=== PATIENT | male | born 2000 | race Caucasian/White ===

== ENCOUNTER → 2022-01-02 | Outpatient (CLI) | payer BC, OTHER, SELFPAY ==
--- NOTE | 2022-01-02 14:52 | RAD_ITS ---
INDICATION: FOREIGN BODY EXAMINATION/TECHNIQUE: X-RAY - XR Skull Complete Min 4 Views COMPARISON: None. FINDINGS: CALVARIUM: No depressed skull fracture. No destructive or sclerotic abnormality observed. SOFT TISSUES: No soft tissue swelling or gas. A radiopaque ring is visualized superimposed over the patient''s left nostril, nose ring. A linear radiopacity is visualized in the midline overlying the patient''s maxillary teeth, this could represent fixation. A 0.5 cm radiopaque density is visualized superimposed over the left lateral molar teeth, location does not align with dental filling or implant would recommend clinical correlation. SINUSES: No acute abnormality. Deviation of the nasal septum to the left is visualized. RAD/Skull min 4 Views IMPRESSION: A 0.5 cm radiopaque density is visualized superimposed over the left lateral molar teeth, location does not align with dental filling or implant would recommend clinical correlation. A radiopaque ring is visualized superimposed over the patient''s left nostril, nose ring. A linear radiopacity is visualized in the midline overlying the patient''s maxillary teeth, this could represent fixation. Electronically Signed: Rudy Rodriguez MD at 15:23 EDT ,
== END | disposition home or self-care (01) ==
LOC: RAD 14:47
PROVIDERS: PCP Internal Medicine Infectious Disease; Referring Provider Otolaryngology; Visit Provider Otolaryngology
DX: S00.551A Superficial foreign body of lip, initial encounter (principal); X58.XXXA Exposure to other specified factors, initial encounter
CPT/HCPCS: 70260